=== PATIENT | female | born 1935 | race Caucasian/White ===

== ENCOUNTER 2019-03-27 11:05 | Emergency (ER) | payer MEDICARE, OTHER, SELFPAY ==
--- NOTE | ~2019-03-27 | XR_ITS ---
EXAMINATION: XR knee RT min 4V DATE: 03/27/2019 12:03 INDICATION: Right knee pain. TECHNIQUE: 4 views of right knee were obtained. COMPARISON: None. FINDINGS: There is a total right knee arthroplasty with patellar resurfacing in near-anatomic alignme nt. No fracture. No periprosthetic lucency to suggest loosening or infection. No knee joint effusion. IMPRESSION: 1. Total right knee arthroplasty in near-anatomic alignment. Reviewed, dictated and finalized at location A. TING SALES REPRESENTATIVE
[2019-03-27 11:36] VITALS: BP 111/73; PULSE 113; RESP 16; TEMP 36.6; O2SAT 99
--- NOTE | 2019-03-27 11:36 | ED.GENADULT ---
HPI - General Adult General Chief complaint: Extremity Injury, Lower Stated complaint: Right Knee Pain Time Seen by Provider: 03/27/19 11:52 Source: patient and RN notes reviewed Mode of arrival: ambulatory Limitations: no limitations History of Present Illness HPI narrative: This patient has had right knee pain which was present when she awakened 2 days ago. It hurts on the outside of the knee over the lateral collateral ligaments. It does not hurt over the anterior aspect of the knee or medially or posteriorly. The pain then went away and then this morning it recurred. She has not had any recent trauma to the knee and no trauma. 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 She indicates that she has had problems with her kidneys due to osteoarthritis medications with NSAIDs. The knee has not been swollen or bruised. It has not been warm to touch. It does not click, lock, pop, or give out on her. No other joint areas are painful. She has not had any fever, no nasal drainage, no sore throat, no cough. Has had no rashes. There is been no nausea, no vomiting, and no diarrhea. She has had no hematuria, no dysuria, no pyuria. She had no rashes. Related Data Home Medications Medication Instructions Recorded Confirmed Promise Eye Drops DAILY 03/27/19 alendronate 35 mg PO WEEKLY 03/27/19 03/27/19 allopurinol 300 mg PO DAILY 03/27/19 03/27/19 diltiazem HCl 180 mg PO DAILY 03/27/19 03/27/19 furosemide 20 mg PO DAILY 03/27/19 03/27/19 hydralazine 25 mg PO BID 03/27/19 03/27/19 rivaroxaban [Xarelto] 15 mg PO DAILY 03/27/19 03/27/19 sitagliptin [Januvia] 100 mg PO DAILY 03/27/19 03/27/19 Allergies Allergy/AdvReac Type Severity Reaction Status Date / Time Hfyyoyh-Eah-Fih Reductase Allergy Severe MUSCLE PAIN Verified 04/03/17 13:33 Inhibitor Penicillins Allergy Unknown JOINT Verified 04/03/17 13:33 PAIN, RASH Review of Systems Review of Systems: Narrative: CONSTITUTIONAL: Denies fever, chills, or sweats. Noncontributory except as pertains to the past medical history and the history of present illness. EYES: Denies visual changes, redness, or discharge. ENT: Denies rhinorrhea, congestion, sore throat, or otalgia. CARDIOVASCULAR: Denies chest pain, palpitations, or edema. RESPIRATORY: Denies cough or dyspnea. GASTROINTESTINAL: Denies abdominal pain, nausea, vomiting, or diarrhea. GENITOURINARY: Denies dysuria or hematuria. SKIN: Denies rash or itching. MUSCULOSKELETAL: Denies back pain, joint pain, or myalgia. NEUROLOGIC: Denies headache, numbness, or weakness. PSYCHIATRIC: Denies anxiety or depression. PMFSH Comments At time of signature, I have reviewed and agree with nursing past medical, surgical, social, and family history.Please see nursing chart for further information. There is no relevant family history pertinent to the presenting complaint. Exam Narrative: Exam Narrative: GENERAL: Well-appearing, well-nourished, and in no acute distress. HEAD: Normocephalic, atraumatic. EYES: PERRLA and EOMI. EARS: TM's clear bilaterally and the canals are clear. NOSE: Nares clear, no rhinorrhea or epistaxis. THROAT:Mucous membranes moist.Oropharynx normal without erythema or exudates. NECK: Supple. No adenopathy of the neck, supraclavicular, axillary, or inguinal areas. RESPIRATORY: No respiratory distress. Airway patent. Respirations non-labored. Clear to auscultation. HEART: Regular rate and rhythm. No murmur heard. Normal peripheral pulses. ABDOMEN: Soft, nontender, nondistended, normal active bowel sounds.No masses. No rebound or guarding, No organomegaly. No CVA pain. No pain McBurney's point. Patient has a negative Cantu sign and negative Rovsing sign. There are no pulsatile masses no audible bruits. EXTREMITIES: No clubbing/cyanosis/ edema. Normal strength & range of motion. The extremity exam is normal except for the right knee where she has palpation tenderness over the
== END 2019-03-27 12:25 | disposition home or self-care (01) ==
PROVIDERS: Emergency Provider Family Medicine
DX: M77.9 Enthesopathy, unspecified (principal); Z96.651 Presence of right artificial knee joint; I48.91 Unspecified atrial fibrillation; E78.00 Pure hypercholesterolemia, unspecified; I10 Essential (primary) hypertension; M19.90 Unspecified osteoarthritis, unspecified site; M81.0 Age-related osteoporosis without current pathological fracture; E11.9 Type 2 diabetes mellitus without complications
CPT/HCPCS: 73564; 99213; G0463

== ENCOUNTER 2020-08-09 10:32 | Inpatient (IN) | payer MEDICARE, OTHER, SELFPAY ==
[2020-08-09] VITALS (15 sets, daily range): BP systolic 88–125; BP diastolic 44–81; PULSE 109–143; RESP 17–25; TEMP 36.7–37.2; O2SAT 97–100; BMI 26.3
--- NOTE | ~2020-08-09 | US_ITS ---
EXAMINATION: US venous doppler LE EXAM DATE: 08/10/2020 14:16 INDICATION: Bilateral lower extremity swelling, edema. TECHNIQUE: Multiple grayscale, color flow and Doppler images of the lower extremity deep venous syste ms bilaterally were obtained and reviewed. There is no prior study for comparison. FINDINGS: Right side: The right common femoral, femoral and profunda veins demonstrate normal color flow, respi ratory variation, augmentation and compressibility. Compressibility, color flow confirmed within the right popliteal, posterior tibial, peroneal, and greater saphenous veins. Left side: The left common femoral, femoral and profunda veins demonstrate normal color flow, respira tory variation, augmentation and compressibility. Compressibility, color flow confirmed within the l eft popliteal, posterior tibial, peroneal, and greater saphenous veins. IMPRESSION: No lower extremity deep venous thrombosis bilaterally. Reviewed, dictated and finalized at location B.
--- NOTE | 2020-08-09 10:22 | ADMGEN ---
This patient, Shannon Ramirez, was admitted to Intensive Care Unit-6 from [facility] at 0950 via ambulance. Patient/family oriented to hospital policies and general routines including ID bracelet, bed and alarms, visiting hours, pain management, procedures, bathroom and other care routines, personal items, smoking policy, room service/diet, and visiting hours. Information on how to activate the Rapid Response Team has been discussed. Patient/Family are encouraged to report perceived risks to care and to ask questions if they do not understand what they are told or what they should do.
[2020-08-09] MEDS: METOPROLOL TARTRATE INJ 5 MG/5 ML VIAL 2.5 MG IV PUSH (10:25)
[2020-08-09 10:39] LABS: Glucose Point of Care 274 mg/dl (65-105)
--- NOTE | 2020-08-09 10:43 | WPDCNINT ---
Assessment and Plan Assessment and plan (1) Anemia: Code(s): D64.9 - Anemia, unspecified Status: Acute Assessment and Plan: Severe anemia likely related to anticoagulation, anemia of chronic disease, GI bleed -a place patient on Protonix infusion -patient has been transfused 2 units of packed RBCs, repeat hemoglobin is 7.7, will give additional 1 unit PRBC -appreciate GI evaluation recommendation, patient to undergo EGD and colonoscopy -patient did receive Kcentra at the outside hospital since she is on Xarelto for atrial fibrillation (2) GI bleeding: Code(s): K92.2 - Gastrointestinal hemorrhage, unspecified Status: Acute Assessment and Plan: Possible GI bleed, EGD and colonoscopy as above -continue PPI infusion -transfuse packed RBC as needed -BUN is elevated which could indicate a GI bleed -lactic acid elevated to 2.8, will recheck lactic level (3) Atrial fibrillation: Code(s): I48.91 - Unspecified atrial fibrillation Status: Acute Assessment and Plan: Patient history of atrial fibrillation on Cardizem at home along with Xarelto -currently in AFib RVR, given metoprolol 2.5 mg IV x1 with dropped her blood pressures -patient did get 500 mL of IV fluid bolus -will start amiodarone bolus and then infusion (4) Swelling of lower extremity: Code(s): M79.89 - Other specified soft tissue disorders Status: Acute Assessment and Plan: patient sees a arc cutter plasma arc at [facility], and was supposed to get a echocardiogram on 08/11/2020. Will obtain echocardiogram to evaluate heart function as patient is in AFib RVR -troponin negative x1 Additional Plan Discussed with patient and her niece at bedside, updated them with patient's condition, plan of care. I answered all questions. Patient stated she was to be do not resuscitate Code status: DNR Critical care time spent: 49 minutes This dictation may have been done utilizing a voice recognition system. Attempts have been made to correct errors. However, there may be uncorrected grammatical, spelling, and recognition errors present. Due to a high probability of clinically significant, life threatening deterioration, the patient required my highest level of preparedness to intervene emergently and I personally spent this critical care time directly and personally managing the patient. This critical care time included obtaining a history; examining the patient; pulse oximetry; ordering and review of studies; arranging urgent treatment with development of a management plan; evaluation of patient's response to treatment; frequent reassessment; and discussions with other providers. It was exclusive of separately billable procedures and treating other patients and teaching time. Please see Assessment and Plan section and the rest of the note for further information on patient assessment and treatment Hand Screen Printer Consult Note Consult date: 08/09/20 Time Seen: 10:33 HPI: Shannon Ramirez is a 85 year old female with past medical history of hypertension, chronic atrial fibrillation on Xarelto, diabetes, hypoparathyroidism, chronic renal failure presented to the outside hospital at [facility] early this morning 08/09/2020 with complaints of nausea, vomiting, diarrhea which he attributes it to eating spoiled fashion. In the ER at the outside hospital she was found to be tachycardic with a pulse in the 130s, irregular rhythm, hemoglobin was 6.6. She has been transfused 2 units of packed RBCs at the outside hospital, also received Kcentra to reverse anticoagulation. She was also hyperglycemic with an anion gap of 20, insulin infusion was started at the outside hospital which was discontinued prior to transferring the patient to the ICU at [facility]. Patient also acute on chronic kidney disease with a creatinine of 1.72 this morning at the outside hospital, (Cr was 1.27 on 07/07/2020). I discussed with Dr. Gómez at [place]
--- NOTE | 2020-08-09 10:50 | ECHO_ITS ---
Patient Info Name: Shannon Ramirez Age: 85 years : 1935 Gender: Female Ht: 64 in Wt: 153 lbs BSA: 1.79 m2 HR: 113 bpm BP: 106 / 47 mmHg Technical Quality: Fair Exam Date: 08/09/2020 2:40 PM Exam Location: [facility] Room: ICU6 Patient Status: Inpatient Admit Date: 08/09/2020 Staff Ordering Physician: Chacha Jara MD Executive Marketing Assistant: Reshma Jacobs RDCS Attending Provider: Kaela Cantu MD Referring Physician: Marek MILIAN; Exam Type: CA echo doppler color flow Study Info Indications - AFIB RVR ASSESS CARDIAC FUNCTION Complete two-dimensional, color flow and Doppler transthoracic echocardiogram is performed. Summary 1. Complete two-dimensional, color flow and Doppler transthoracic echocardiogram is performed. 2. Left ventricular systolic function is mildly reduced, estimated at 45-50%. 3. Left atrial chamber dimension is mildly enlarged. 4. There is mild aortic valve sclerosis. 5. The aortic valve is trileaflet. 6. There is mild aortic valve stenosis with a peak velocity of 203 cm/s, mean gradient of 11 mmHg, and aortic valve area of 1.7 cm2. 7. There is mild aortic valve regurgitation. 8. There is mild mitral valve regurgitation. 9. There is mild tricuspid valve regurgitation. 10. Mild pulmonary hypertension, estimated pulmonary arterial systolic pressure is 42 mmHg. 11. Hypokinesis of basal and mid anteroseptal wall. Left Ventricle Left ventricular chamber dimension is normal. Left ventricular systolic function is mildly reduced, estimated at 45-50%. There is no increased left ventricular wall thickness. Left ventricular septal wall motion is normal. The left ventricular diastolic function is abnormal. Right Ventricle Right ventricular chamber dimension is normal. Right ventricular systolic function is normal. Left Atria Left atrial chamber dimension is mildly enlarged. Right Atria Right atrial chamber dimension is normal. Atrial Septum Intact interatrial septum visualized by color flow imaging. Aortic Valve The aortic valve is trileaflet. There is mild aortic valve sclerosis. There is mild aortic valve stenosis with a peak velocity of 203 cm/s, mean gradient of 11 mmHg, and aortic valve area of 1.7 cm2. There is mild aortic valve regurgitation. Pulmonic Valve The pulmonic valve is normal. There is no pulmonic valve stenosis. There is mild pulmonic regurgitation. Mitral Valve The mitral valve has normal leaflets. There is no mitral valve stenosis. There is mild mitral valve regurgitation. Tricuspid Valve The tricuspid valve leaflets are normal. There is no significant tricuspid valve stenosis. There is mild tricuspid valve regurgitation. Mild pulmonary hypertension, estimated pulmonary arterial systolic pressure is 42 mmHg. Pericardium/Pleural The pericardium appears normal. There is no pericardial effusion. Inferior Vena Cava Normal inferior vena cava with >50% collapse upon inspiration consistent with normal right atrial pressure, 5 mmHg. Aorta The aortic root size at the sinus of Valsalva is normal. The prox ascending aorta size is normal. Left Ventricular Outflow Tract Name Value Normal LVOT 2D LVOT Meri
[2020-08-09] MEDS: SODIUM CHLORIDE 0.9% IV 500 ML IV CONT (11:00)
[2020-08-09 11:01] LABS: Basophils Percent Auto 0.1 % (0.2-1.2); Eosinophils Percent Auto 0.1 % (0-4.4); Hematocrit 23.8 % (37.0-47.0); Hemoglobin 7.7 g/dL (12.0-15.0); Immature Granulocyte Absolute 0.09 K/mm3 (0.00-0.031); Immature Granulocyte Percent A 1.1 % (0-0.5); Lymphocytes Percent Auto 8.3 % (18.3-44.2); Mean Corpuscular HGB Conc 32.4 g/dl (32-36); Mean Corpuscular Hemoglobin 29.5 pg (26-34); Mean Corpuscular Volume 91.2 fl (80-100); Mean Platelet Volume 9.6 fl (7.4-10.4); Monocytes Absolute Auto 0.5 K/mm3 (0.1-0.6); Monocytes Percent Auto 6.1 % (2.6-8.5); Neutrophils Absolute Auto 7.2 K/mm3 (1.3-6.7); Neutrophils Percent Auto 84.3 % (45.5-73.1); Platelet Count Result 235 k/mm3 (150-375); Red Blood Count 2.61 M/mm3 (4.2-5.4); Red Cell Distribution Width 16.9 % (11.5-14.5); White Blood Count 8.5 K/mm3 (4.5-10.0)
[2020-08-09 11:09] LABS: Lactic Acid Reflex 2.8 mmol/L (0.7-2.1)
[2020-08-09 11:11] LABS: Alanine Aminotransferase 16 U/L (4-35); Albumin Level 2.5 g/dL (3.5-5.1); Alkaline Phosphatase 84 U/L (38-126); Anion Gap 8 mmol/L (8-16); Aspartate Amino Transferase 22 U/L (14-36); Bilirubin,Total 1.2 mg/dL (0.2-1.3); Blood Urea Nitrogen 66 mg/dL (7-17); Calcium 7.9 mg/dL (8.4-10.2); Carbon Dioxide 25 mmol/L (22-30); Chloride 96 mmol/L (98-107); Estimated CRCL calculation 19 ml/min; Estimated Glomerular Filt Rate 28; Glucose 278 mg/dL (65-105); Magnesium 1.9 mg/dL (1.6-2.3); Phosphorus 3.6 mg/dL (2.5-4.5); Potassium 4.6 mmol/L (3.4-5.0); Sodium 129 mmol/L (137-145)
[2020-08-09 11:14] LABS: INR 2.2; Prothrombin Time 25.1 Seconds (11.1-14.7)
[2020-08-09 11:15] LABS: Beta-Hydroxybutyrate/Acetoacetate 0.28 mmol/L (0.02-0.27); Partial Thromboplastin Time 31.5 SECONDS (22.3-36.8)
--- NOTE | 2020-08-09 11:20 | WPDGICN ---
Assessment and Plan Assessment and plan (1) Anemia: Code(s): D64.9 - Anemia, unspecified Status: Acute Assessment and Plan: although she may have an element of chronic anemia, we are assuming that she has anemia due to acute blood loss, although she only had 1 bowel movement and she herself did not see blood. (2) GI bleeding: Code(s): K92.2 - Gastrointestinal hemorrhage, unspecified Status: Acute Assessment and Plan: She has no pain and no use of NSAIDs. This, and her age, make a lower GI bleed more likely than upper. She did receive a dose of Kcentra. Her INR is pending. I told her that we would probably perform EGD and colonoscopy together. She is agreeable to trying to take a prep (3) Atrial fibrillation: Code(s): I48.91 - Unspecified atrial fibrillation Status: Acute Assessment and Plan: heart rate is still elevated. She has not been year that long and therefore has not received a great deal of IV fluid, rehydration yet GI Consult Note Consult date/time: 08/09/20 11:20 HPI: Shannon Ramirez is a 85 year old female A workup was morning with some sweating and nausea and diarrhea. She had a bowel movement or 2 at home but did not look at it. She states that somebody told her that she was probably passing blood. She had no emesis. There is no history of peptic ulcer disease or colon diseases and has been quite a while since her last colonoscopy. She does not take NSAIDs or aspirin. She is on Xarelto and has been for few years for chronic AFib. Her appetite has been good and she denies dysphagia Review of Systems Review of Systems: All systems reviewed & are unremarkable except as noted in HPI and below [facility] Family History Family History Mother Congestive heart failure Father Congestive heart failure Social History Social History Smoking status: Never smoker Alcohol intake: never Substance use: never Gender identity (if verbalized by the patient): Female Spiritual care concerns: No Meds Home Medications and Allergies Home Medications Medication Instructions Recorded Confirmed Type Promise Eye Drops DAILY 03/27/19 History alendronate 35 mg PO WEEKLY 03/27/19 03/27/19 History allopurinol 300 mg PO DAILY 03/27/19 03/27/19 History diltiazem HCl 180 mg PO DAILY 03/27/19 03/27/19 History furosemide 20 mg PO DAILY 03/27/19 03/27/19 History hydralazine 25 mg PO BID 03/27/19 03/27/19 History rivaroxaban [Xarelto] 15 mg PO DAILY 03/27/19 03/27/19 History sitagliptin [Januvia] 100 mg PO DAILY 03/27/19 03/27/19 History Allergies Allergy/AdvReac Type Severity Reaction Status Date / Time Itoztqk-Mww-Nhy Reductase Allergy Severe MUSCLE PAIN Verified 04/03/17 13:33 Inhibitor Penicillins Allergy Unknown JOINT Verified 04/03/17 13:33 PAIN, RASH Vital Signs Vital Signs - 24 hr 08/09/20 10:25 08/09/20 10:32 Pulse Rate 136 H 136 H Exam Const: General: cooperative, comfortable and awake Cardio: Rhythm: abnormal rhythm ( irregular) GI: GI Palp: No abdominal tenderness, Yes Soft to palpation and Yes No hepatosplenomegaly present Auscultation: normal bowel sounds Skin: General skin exam: dry skin, no purpura and pallor Results Labs CBC & Chem 7: 08/09/20 10:54 08/09/20 10:53 Labs: Short CBC 08/09/20 Range/Units 10:54 WBC 8.5 (4.5-10.0) K/mm3 Hgb 7.7 L (12.0-15.0) g/dL Hct 23.8 L (37.0-47.0) % Plt Count 235 (150-375) k/mm3 [facility] 08/09/20 10:53 Sodium 129 L Potassium 4.6 Chloride 96 L Carbon Dioxide 25 BUN 66 H Creatinine 1.70 H Glucose 278 H Calcium 7.9 L Liver Function 08/09/20 Range/Units 10:53 Total Bilirubin 1.2 (0.2-1.3) mg/dL AST 22 (14-36) U/L ALT 16 (4-35) U/L Alkaline Phosphatase 84 (38-126) U/L [place]bu
[2020-08-09 11:24] LABS: Troponin I 0.033 ng/mL (0.000-0.034)
[2020-08-09] MEDS: AMIODARONE 150 MG/D5W 100 ML 150 MG/100 ML BAG 600 MG IV CONT (11:30)
[2020-08-09] MEDS: AMIODARONE 360 MG/D5W 200 ML 360 MG/200 ML BAG 33.33 MG IV CONT (11:42)
[2020-08-09 12:32] LABS: Glucose Point of Care 273 mg/dl (65-105)
[2020-08-09 12:33] LABS: Add Urine Microscopic? YES; Appearance Urine Clear (Clear); Bilirubin Urine Negative (Negative); Blood Urine Negative (Negative); Color Urine Yellow (Yellow); Glucose Urine UA 3+ mg/dL (Negative); Ketones Urine Negative (Negative); Leukocyte Esterase Ur Negative LEU/UL (NEGATIVE); Mucus Urine Rare /lpf; Nitrate Urine Negative (Negative); Protein Urine Negative (Negative); Specific Grav Ur 1.014 (1.001-1.035); Urobilinogen Urine Negative mg/dL (<2.0); WBC Urine 0-3 /hpf (0-3)
[2020-08-09] MEDS: SODIUM CHLORIDE 0.9% IV 1,000 ML 50 ML IV CONT (12:36)
[2020-08-09] MEDS: INSULIN ASPART (*BKC) 100 UNITS/ML SUB-Q ×2 (12:39→17:15)
[2020-08-09 13:58] LABS: Reflex Lactic Acid Yes or No Add Lactic
[2020-08-09] MEDS: SODIUM CHLORIDE 0.9% IV 250 ML 30 ML IV CONT (14:15)
[2020-08-09 14:41] LABS: Lactic Acid 2.3 mmol/L (0.7-2.1)
[2020-08-09] MEDS: polyethylene glycoL 3350 238 GM BOTTLE PO (16:04)
--- NOTE | 2020-08-09 16:52 | PM.IMHP ---
H&P: HPI History of Present Illness Date/Time: 08/09/20 16:52 Chief Complaint: GI bleed Narrative: Pt has history of hypertension, chronic atrial fibrillation on Xarelto, diabetes, hypoparathyroidism, chronic renal failure presented to the outside hospital at [facility]. Pt admitted with diarrhea, melena and low hemoglobulin. Hb was 6.6. Pt takes xarelto. Pt did not see the melena but thinks she had some. Pt was given KCentra in [place]. and started on fluids here for low Bps. GI consulted for higher level of care. Pt to be watched in ICu today. Pt also has high sugars @500 now in the 200s continue to watch. Pt is on a protonix drip and amiodarone drip for AF with RVR. Hold blood thinners. Pt seen earlier this morning @ 11 am. Pt complains of swelling in both her legs and pain in her right hip has been using tramadol for hip pain. Pt has seen orthopedics and had MRI of hip recently. Pt sees PCP and cardiology also [facility] MDs. Review of Systems Review of Systems: All systems reviewed & are unremarkable except as noted in HPI and below PMFSH Family History Family History Mother Congestive heart failure Father Congestive heart failure Social History Social History Smoking status: Never smoker Alcohol intake: never Substance use: never Gender identity (if verbalized by the patient): Female Spiritual care concerns: No Meds Home Medications and Allergies Home Medications Medication Instructions Recorded Confirmed Type alendronate 70 mg PO WEEKLY 03/27/19 08/09/20 History allopurinol 300 mg PO DAILY 03/27/19 08/09/20 History diltiazem HCl 180 mg PO DAILY 03/27/19 08/09/20 History furosemide 20 mg PO DAILY 03/27/19 08/09/20 History hydralazine 25 mg PO BID 03/27/19 08/09/20 History rivaroxaban [Xarelto] 15 mg PO DAILY 03/27/19 08/09/20 History sitagliptin [Januvia] 100 mg PO DAILY 03/27/19 08/09/20 History Allergies Allergy/AdvReac Type Severity Reaction Status Date / Time Hvndjke-Vmt-Iay Reductase Allergy Severe MUSCLE PAIN Verified 04/03/17 13:33 Inhibitor Penicillins Allergy Unknown JOINT Verified 04/03/17 13:33 PAIN, RASH Vital Signs Vital Signs - 24 hr 08/09/20 10:08 08/09/20 10:25 08/09/20 10:32 Temperature 36.7 C Pulse Rate 143 H 136 H 136 H Respiratory Rate 19 Blood Pressure 110/78 Pulse Oximetry 99 08/09/20 11:30 08/09/20 11:42 08/09/20 12:00 Temperature 36.8 C Pulse Rate 125 H 112 H 115 H Respiratory Rate 20 Blood Pressure 88/44 L 88/44 L 88/53 L Pulse Oximetry 100 08/09/20 14:00 08/09/20 14:15 08/09/20 14:33 Temperature 37.2 C 37.2 C Pulse Rate 109 H 112 H 120 H Respiratory Rate 25 H 17 Blood Pressure 88/54 L 100/57 L Pulse Oximetry 100 100 08/09/20 16:00 Temperature 37.2 C Pulse Rate 120 H Respiratory Rate 19 Blood Pressure 100/57 L Pulse Oximetry 99 Exam Const: General: other (Elderly women ) HENMT: Head: normocephalic Eyes: General: appearance normal, both eyes and all related structures Pupils: Equal, round and reactive pupils present Neck: Neck: supple Chest: Chest palpation & inspection: normal inspection of the chest Resp: Effort & Inspection: normal respiratory effort Auscultation: clear to auscultation bilaterally Cardio: Jugular venous distension: no JVD Rhythm: regular rhythm Heart sounds: S1 normal heart sound present and S2 normal heart sound present GI: Inspection: normal to inspection GI Palp: No abdominal tenderness, Yes Soft to palpation and No Tenderness to palpation present (GI) Auscultation: normal bowel sounds : General: Yes no CVA tenderness Back/Spine/Pelvis: Back: other (TTP over r hip limited range of movements due to pain ) Skin: General skin exam: normal color and dry skin Neuro: Cranial nerves: Yes CN's II-XII intact bilaterally and Yes Equal, round and reactive pupi
[2020-08-09 17:00] LABS: Glucose Point of Care 250 mg/dl (65-105)
[2020-08-09] MEDS: AMIODARONE 360 MG/D5W 200 ML 360 MG/200 ML BAG 16.67 MG IV CONT (17:05)
[2020-08-09 23:30] LABS: Glucose Point of Care 172 mg/dl (65-105)
[2020-08-10] VITALS (22 sets, daily range): BP systolic 92–129; BP diastolic 40–73; PULSE 84–118; RESP 12–26; TEMP 36.2–37.1; O2SAT 95–100
[2020-08-10] MEDS: MAGNESIUM CITRATE 300 ML BTL 150 ML PO (04:10)
[2020-08-10] MEDS: AMIODARONE 360 MG/D5W 200 ML 360 MG/200 ML BAG 16.67 MG IV CONT (04:43)
[2020-08-10 04:51] LABS: Basophils Percent Auto 0.3 % (0.2-1.2); Eosinophils Absolute Auto 0.2 K/mm3 (0-0.3); Eosinophils Percent Auto 1.6 % (0-4.4); Hematocrit 26.3 % (37.0-47.0); Hemoglobin 9.1 g/dL (12.0-15.0); Immature Granulocyte Absolute 0.12 K/mm3 (0.00-0.031); Immature Granulocyte Percent A 1.2 % (0-0.5); Lymphocytes Absolute Auto 1.36 K/mm3 (0.9-3.2); Lymphocytes Percent Auto 13.7 % (18.3-44.2); Mean Corpuscular HGB Conc 34.6 g/dl (32-36); Mean Corpuscular Hemoglobin 30.3 pg (26-34); Mean Corpuscular Volume 87.7 fl (80-100); Mean Platelet Volume 10.2 fl (7.4-10.4); Monocytes Absolute Auto 0.6 K/mm3 (0.1-0.6); Monocytes Percent Auto 5.5 % (2.6-8.5); Neutrophils Absolute Auto 7.7 K/mm3 (1.3-6.7); Neutrophils Percent Auto 77.7 % (45.5-73.1); Platelet Count Result 232 k/mm3 (150-375); Red Cell Distribution Width 16.3 % (11.5-14.5)
[2020-08-10 05:02] LABS: INR 1.1; Prothrombin Time 14.7 Seconds (11.1-14.7)
[2020-08-10 05:03] LABS: Partial Thromboplastin Time 27.9 SECONDS (22.3-36.8)
[2020-08-10 05:09] LABS: Alanine Aminotransferase 14 U/L (4-35); Albumin Level 2.6 g/dL (3.5-5.1); Alkaline Phosphatase 85 U/L (38-126); Anion Gap 7 mmol/L (8-16); Aspartate Amino Transferase 22 U/L (14-36); Blood Urea Nitrogen 74 mg/dL (7-17); Calcium 8.1 mg/dL (8.4-10.2); Carbon Dioxide 24 mmol/L (22-30); Chloride 102 mmol/L (98-107); Estimated CRCL calculation 24 ml/min; Estimated Glomerular Filt Rate 39; Glucose 200 mg/dL (65-105); Magnesium 1.9 mg/dL (1.6-2.3); Phosphorus 2.4 mg/dL (2.5-4.5); Potassium 3.2 mmol/L (3.4-5.0); Sodium 133 mmol/L (137-145)
[2020-08-10 05:11] LABS: Lactic Acid Reflex 0.9 mmol/L (0.7-2.1)
[2020-08-10] MEDS: SODIUM CHLORIDE 0.9% IV 1,000 ML 50 ML IV CONT (07:35)
[2020-08-10 07:49] LABS: Glucose Point of Care 214 mg/dl (65-105)
[2020-08-10] MEDS: ACETAMINOPHEN 325 MG TABLET 650 MG PO ×2 (08:28→19:38)
--- NOTE | 2020-08-10 09:50 | PC.NURSE ---
Transfered to endoscopy via stretcher
--- NOTE | 2020-08-10 09:55 | WPDINTPN ---
Progress Note: A&P Assessment and Plan (1) Anemia: Code(s): D64.9 - Anemia, unspecified Status: Acute Assessment and Plan: Severe anemia likely related to anticoagulation, anemia of chronic disease, GI bleed -a place patient on Protonix infusion -patient has been transfused a total of 3 units of packed RBCs since admission, hemoglobin is stable at 9.1 this morning -appreciate GI evaluation recommendation, patient to undergo EGD and colonoscopy today. 08/10 -patient did receive Kcentra at the outside hospital since she is on Xarelto for atrial fibrillation, INR this morning is 1.1 (2) GI bleeding: Code(s): K92.2 - Gastrointestinal hemorrhage, unspecified Status: Inactive Assessment and Plan: Possible GI bleed, EGD and colonoscopy today -transfuse packed RBC as needed -BUN is elevated which could indicate a GI bleed -lactic acid Normalized (3) Atrial fibrillation: Code(s): I48.91 - Unspecified atrial fibrillation Status: Inactive Assessment and Plan: Patient history of atrial fibrillation on Cardizem at home along with Xarelto - patient adequately fluid-resuscitated - better rate control with volume resuscitation, packed RBCs and amiodarone 0.5 mg/minute (4) Swelling of lower extremity: Code(s): M79.89 - Other specified soft tissue disorders Status: Acute Assessment and Plan: patient sees a oil heater operator at [facility], and was supposed to get a echocardiogram on 08/11/2020. -echocardiogram 08/09/2020 shows reduced LV systolic function, EF 45-50%, mild aortic valve stenosis, mild aortic valve regurg, mild mitral valve regurg, mild tricuspid valve regurg, mild pulmonary hypertension with RVSP of 42 mmHg. Hypokinesis of basal and mid anteroseptal -troponin negative x1 -will obtain lower extremity Dopplers (5) Acute kidney injury: Code(s): N17.9 - Acute kidney failure, unspecified Status: Inactive Assessment and Plan: Acute on chronic kidney injury, baseline creatinine of 1.2 -creatinine on admission was 1.7 -patient has been adequately fluid-resuscitated with crystalloids and packed RBCs -creatinine this morning has improved, continue to monitor urine output, renal function electrolytes Additional Plan Discussed with patient and her niece at bedside, updated them with patient's condition, plan of care. Patient is aware that she will be getting a colonoscopy and EGD today Code status: DNR Critical care time spent: 49 minutes This dictation may have been done utilizing a voice recognition system. Attempts have been made to correct errors. However, there may be uncorrected grammatical, spelling, and recognition errors present. Due to a high probability of clinically significant, life threatening deterioration, the patient required my highest level of preparedness to intervene emergently and I personally spent this critical care time directly and personally managing the patient. This critical care time included obtaining a history; examining the patient; pulse oximetry; ordering and review of studies; arranging urgent treatment with development of a management plan; evaluation of patient's response to treatment; frequent reassessment; and discussions with other providers. It was exclusive of separately billable procedures and treating other patients and teaching time. Please see Assessment and Plan section and the rest of the note for further information on patient assessment and treatment Subjective Date/time seen: 08/10/20 09:55 Interval history: Reason for consult: Severe anemia, GI bleeding, AFib RVR 08/10/2020: Patient seen and examined this morning, according the bedside RN patient has had multiple episodes of bowel movements with dark stools along with blood in the stools. Patient is hemodynamically stable, currently on room air with good O2 sats. Hemoglobin has been stable after receiving 3 units of packed RBCs yesterday.
[2020-08-10] MEDS: LACTATED RINGERS 1,000 ML 150 ML IV CONT (10:07)
[2020-08-10 10:09] LABS: Glucose Point of Care 205 mg/dl (65-105)
--- NOTE | 2020-08-10 11:02 | PCDIET ---
ICU Rounding Note: Patient remains NPO. Off unit for endoscopy today. Received 3u RBC yesterday. Last recorded weight is 69.3kg which is stable. Bowel Motility: BM x 1 today. Labs Reviewed: Hgb (9.1), Hct (26.3), Glu (200), BUN (74), Cr (1.3), K (3.2), Na (133), Alb (2.6), [place] Ca (9.22), PO4 (2.4) Meds Noted: Amiodarone, Novolog, Protonix, NS at 50mL/hr Additional Notes: Recommend potassium and phosphorus replacement, as medically appropriate. Following daily in ICU rounds. Assessing/reassessing every 3 days.
--- NOTE | 2020-08-10 11:13 | WPDANESEPPF ---
Anes - Initial Pre Proc Eval Procedure: Operation Date: 08/10/20 11:00 Proposed Procedures p Esophagogastroduodenoscopy & Colonoscopy - Kevin Welsh MD Date/Time: 08/10/20 11:13 Surgeon: Kaela Cantu MD Pre Op Diagnosis: gi bleed Patient Data Age: 85 Gender: F Height: 5 ft 4 in Weight: 69.3 kg Last Vital Signs Temp 98.1 F 08/10/20 10:03 Pulse 105 H 08/10/20 10:03 Resp 18 08/10/20 10:03 BP 110/62 08/10/20 10:03 Pulse Ox 100 08/10/20 10:03 Allergies Allergy/AdvReac Type Severity Reaction Status Date / Time [id number] Reductase Allergy Severe MUSCLE PAIN Verified 08/10/20 10:00 Inhibitor Penicillins Allergy Unknown JOINT Verified 08/10/20 10:00 PAIN, RASH Home Medications Medication Instructions Recorded Confirmed Type alendronate 70 mg PO WEEKLY 03/27/19 08/09/20 History allopurinol 300 mg PO DAILY 03/27/19 08/09/20 History diltiazem HCl 180 mg PO DAILY 03/27/19 08/09/20 History furosemide 20 mg PO DAILY 03/27/19 08/09/20 History hydralazine 25 mg PO BID 03/27/19 08/09/20 History rivaroxaban [Xarelto] 15 mg PO DAILY 03/27/19 08/09/20 History sitagliptin [Januvia] 100 mg PO DAILY 03/27/19 08/09/20 History Laboratory Tests 08/09/20 08/09/20 08/09/20 10:53 10:53 10:53 WBC RBC Hgb Hct MCV MCH MCHC RDW Plt Count MPV Immature Gran % (Auto) Neut % (Auto) Lymph % (Auto) [place] % (Auto) Eos % (Auto) Baso % (Auto) Lymph # (Auto) [place] # (Auto) Eos # (Auto) Baso # (Auto) Abs Immat Gran (auto) Absolute Neuts (auto) Absolute Nucleated RBC Nucleated RBC % PT 25.1 Seconds H Seconds (11.1-14.7) INR 2.2 APTT 31.5 SECONDS SECONDS (22.3-36.8) Sodium Potassium Chloride Carbon Dioxide Anion Gap BUN Creatinine Estim Creat Clear Calc Estimated GFR Glucose POC Capillary Glucose Lactic Acid Calcium Phosphorus Magnesium Total Bilirubin AST ALT Alkaline Phosphatase Troponin I 0.033 ng/mL ng/mL (0.000-0.034) Total Protein Albumin Beta-Hydroxybutyrate/Acetoacetate Urine Color Urine Appearance Urine pH Ur Specific [place] Urine Protein Urine Glucose (UA) Urine Ketones Ur Blood (Man) Urine Nitrate Urine Bilirubin Urine Urobilinogen Ur Leukocyte Esterase Urine WBC Hyaline Casts Urine Mucus Blood Type O Negative Antibody Screen Negative Crossmatch See Detail 08/09/20 08/09/20 08/09/20 10:53 12:10 12:28 WBC RBC Hgb Hct MCV MCH MCHC RDW Plt Count MPV Immature Gran % (Auto) Neut % (Auto) Lymph % (Auto) [place] % (Auto) Eos % (Auto) Baso % (Auto) Lymph # (Auto) [place] # (Auto) Eos # (Auto) Baso # (Auto) Abs Immat Gran (auto) Absolute Neuts (auto) Absolute Nucleated RBC Nucleated RBC % PT INR APTT Sodium Potassium Chloride Carbon Dioxide Anion Gap BUN Creatini
[2020-08-10] MEDS: EPINEPHrine INJ 1 MG/10 ML SYRINGE XX (12:16)
[2020-08-10 13:09] LABS: Glucose Point of Care 233 mg/dl (65-105)
--- NOTE | 2020-08-10 13:30 | PC.NURSE ---
Patient returned from endoscopy to ICU6 without issue. Left hand IV discontinued, right hand IV initiated in endoscopy
[2020-08-10 17:17] LABS: Glucose Point of Care 200 mg/dl (65-105)
--- NOTE | 2020-08-10 17:59 | PC.NURSE ---
Updated patient's son on results from Endoscopy and Colonoscopy.
[2020-08-10] MEDS: METOPROLOL TARTRATE 12.5 MG TABLET PO (21:18)
[2020-08-10 21:26] LABS: Glucose Point of Care 336 mg/dl (65-105)
[2020-08-10] MEDS: INSULIN ASPART (*BKC) 100 UNITS/ML 6 UNITS SUB-Q (21:31)
[2020-08-11] VITALS (14 sets, daily range): BP systolic 95–149; BP diastolic 45–88; PULSE 88–122; RESP 14–22; TEMP 36.2–36.9; O2SAT 96–100
[2020-08-11 00:08] LABS: Glucose Point of Care 78 mg/dl (65-105)
[2020-08-11] MEDS: ACETAMINOPHEN 325 MG TABLET 650 MG PO ×3 (02:30→22:16)
[2020-08-11 03:37] LABS: Glucose Point of Care 198 mg/dl (65-105)
[2020-08-11] MEDS: SODIUM CHLORIDE 0.9% IV 1,000 ML 50 ML IV CONT (03:51)
[2020-08-11 04:54] LABS: Basophils Percent Auto 0.2 % (0.2-1.2); Eosinophils Absolute Auto 0.3 K/mm3 (0-0.3); Eosinophils Percent Auto 3.3 % (0-4.4); Hematocrit 22.1 % (37.0-47.0); Hemoglobin 7.4 g/dL (12.0-15.0); Immature Granulocyte Absolute 0.08 K/mm3 (0.00-0.031); Immature Granulocyte Percent A 0.9 % (0-0.5); Lymphocytes Absolute Auto 1.08 K/mm3 (0.9-3.2); Lymphocytes Percent Auto 11.6 % (18.3-44.2); Mean Corpuscular HGB Conc 33.5 g/dl (32-36); Mean Corpuscular Volume 89.5 fl (80-100); Monocytes Absolute Auto 0.4 K/mm3 (0.1-0.6); Monocytes Percent Auto 4.7 % (2.6-8.5); Neutrophils Absolute Auto 7.4 K/mm3 (1.3-6.7); Neutrophils Percent Auto 79.3 % (45.5-73.1); Platelet Count Result 199 k/mm3 (150-375); Red Blood Count 2.47 M/mm3 (4.2-5.4); Red Cell Distribution Width 16.3 % (11.5-14.5); White Blood Count 9.3 K/mm3 (4.5-10.0)
[2020-08-11 05:11] LABS: Anion Gap 5 mmol/L (8-16); Blood Urea Nitrogen 36 mg/dL (7-17); Calcium 7.6 mg/dL (8.4-10.2); Carbon Dioxide 23 mmol/L (22-30); Chloride 100 mmol/L (98-107); Estimated CRCL calculation 35 ml/min; Estimated Glomerular Filt Rate 53; Glucose 176 mg/dL (65-105); Magnesium 1.9 mg/dL (1.6-2.3); Potassium 2.8 mmol/L (3.4-5.0); Sodium 128 mmol/L (137-145)
[2020-08-11] MEDS: POTASSIUM CHLORIDE 20 MEQ PACKET (FOR LIQUID) 40 MEQ PO ×3 (06:10→16:28)
[2020-08-11] MEDS: LIDOCAINE 5% PATCH 1 PATCH TRANSDERM (08:15)
[2020-08-11 08:49] LABS: Glucose Point of Care 176 mg/dl (65-105)
[2020-08-11] MEDS: METOPROLOL TARTRATE 12.5 MG TABLET PO ×3 (09:22→22:14)
--- NOTE | 2020-08-11 09:52 | WPDINTPN ---
Progress Note: A&P Assessment and Plan (1) Anemia: Code(s): D64.9 - Anemia, unspecified Status: Acute Assessment and Plan: Severe anemia likely related to anticoagulation, anemia of chronic disease, GI bleed -a place patient on Protonix infusion -patient has been transfused a total of 3 units of packed RBCs since admission, -hemoglobin dropped to 7.4 this morning, will recheck later this morning -appreciate GI evaluation recommendation, -patient did receive Kcentra at the outside hospital since she is on Xarelto for atrial fibrillation, INR this morning is 1.1 (2) GI bleeding: Code(s): K92.2 - Gastrointestinal hemorrhage, unspecified Status: Inactive Assessment and Plan: -08/10/2020: 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, esophageal ulcer without bleeding status post injection of epinephrine, cauterization with gold probe and resolution clips -08/10/2020 colonoscopy: A luminal colonic blood, internal hemorrhoids, diverticulosis without perforation or abscess without bleeding -transfuse packed RBC as needed -BUN is elevated which could indicate a GI bleed -lactic acid Normalized (3) Atrial fibrillation: Code(s): I48.91 - Unspecified atrial fibrillation Status: Inactive Assessment and Plan: Patient history of atrial fibrillation on Cardizem at home along with Xarelto - patient adequately fluid-resuscitated - better rate control with volume resuscitation, packed RBCs -off amiodarone infusion -started on low-dose beta-feng with better rate control (4) Swelling of lower extremity: Code(s): M79.89 - Other specified soft tissue disorders Status: Acute Assessment and Plan: patient sees a wardrobe manager at [facility], and was supposed to get a echocardiogram on 08/11/2020. -echocardiogram 08/09/2020 shows reduced LV systolic function, EF 45-50%, mild aortic valve stenosis, mild aortic valve regurg, mild mitral valve regurg, mild tricuspid valve regurg, mild pulmonary hypertension with RVSP of 42 mmHg. Hypokinesis of basal and mid anteroseptal -troponin negative x1 -will obtain lower extremity Dopplers (5) Acute kidney injury: Code(s): N17.9 - Acute kidney failure, unspecified Status: Inactive Assessment and Plan: Acute on chronic kidney injury, baseline creatinine of 1.2 -creatinine on admission was 1.0, this morning -patient has been adequately fluid-resuscitated with crystalloids and packed RBCs -creatinine this morning has improved, continue to monitor urine output, renal function electrolytes Additional Plan Discussed with patient and her niece at bedside, updated them with patient's condition, plan of care. Patient is aware that she will be getting a colonoscopy and EGD today Code status: DNR Critical care time spent: 32 minutes This dictation may have been done utilizing a voice recognition system. Attempts have been made to correct errors. However, there may be uncorrected grammatical, spelling, and recognition errors present. Due to a high probability of clinically significant, life threatening deterioration, the patient required my highest level of preparedness to intervene emergently and I personally spent this critical care time directly and personally managing the patient. This critical care time included obtaining a history; examining the patient; pulse oximetry; ordering and review of studies; arranging urgent treatment with development of a management plan; evaluation of patient's response to treatment; frequent reassessment; and discussions with other providers. It was exclusive of separately billable procedures and treating other patients and teaching time. Please see Assessment and Plan section and the rest of the note for further information on patient assessment and treatment Subjective Date/time seen: 08/11/20 09:52 Interval history: Reason for consult: Severe anemia, GI bleeding, AFib RVR -08/11/19
[2020-08-11 10:52] LABS: Hematocrit 25.2 % (37.0-47.0); Hemoglobin 8.4 g/dL (12.0-15.0)
[2020-08-11 11:31] LABS: Glucose Point of Care 168 mg/dl (65-105)
--- NOTE | 2020-08-11 11:44 | PCNFU ---
Nutrition Follow-Up Complete: Inadequate oral intake related to GI bleeding as evidenced by NPO diet, reported weight loss. Goal: Patient to meet estimated nutritional needs. Progressing towards goal. We will continue current goal. Pt current nutrition is Full liquids. Last recorded weight is 73.3 kg, up from 69.5 kg on admit. Bowel Motility:+BM reported 08/11 Labs Reviewed:Hgb 7.4,Hct 22.1,Na 128,K 2.8,GFR 53,BUN 36,Cr 0.5,Glu 176 Meds Noted:Lopressor,NovoLog, Protonix, NS at 50mL/hr Additional Notes: No skin issues. Potassium is being replaced. GI on the case. Diet order has advanced to a full liquid diet. tolerating liquids. Monitoring: Follow up every 3 days.
--- NOTE | 2020-08-11 13:20 | WPDGIPROGNO ---
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 The visible vessel in the largest ulcer was cauterized and clipped. continuing Protonix, 40 mg b.i.d. (2) GI bleeding: Code(s): K92.2 - Gastrointestinal hemorrhage, unspecified Status: Acute Assessment and Plan: Her hemoglobin has dropped, 7.4 this morning. We will need to keep an eye on this. I think we can give her a full liquid diet but nothing more than that for now Subjective Date/time seen: 08/11/20 13:20 she has no complaints. No evidence of further bleeding. Hemoglobin has dropped a bit. She is tolerating clear liquids Review of Systems Cardiovascular: Cardiovascular: Reports no additional cardiovascular complaints Respiratory: Respiratory: Reports no additional respiratory complaints Gastrointestinal: Gastrointestinal: Reports no additional gastrointestinal complaints Exam Const: General: cooperative, comfortable and no acute distress Resp: Auscultation: clear to auscultation bilaterally GI: GI Palp: No abdominal tenderness, Yes Soft to palpation and Yes No hepatosplenomegaly present Auscultation: normal bowel sounds Objective Data Vital Signs Vital Signs: Vital Signs - 24 hr 08/10/20 13:35 08/10/20 13:40 08/10/20 14:00 Temperature 37.1 C Pulse Rate 84 84 107 H Respiratory Rate 15 15 26 H Blood Pressure 118/62 118/42 L Pulse Oximetry 100 100 100 08/10/20 16:00 08/10/20 17:00 08/10/20 18:00 Temperature 36.8 C Pulse Rate 103 H 96 106 H Respiratory Rate 18 21 H Blood Pressure 106/53 L 99/71 L 100/57 L Pulse Oximetry 99 100 08/10/20 20:00 08/10/20 21:18 08/10/20 22:30 Temperature 36.3 C L Pulse Rate 111 H 101 H 100 Respiratory Rate 19 12 Blood Pressure 95/58 L 104/56 L Pulse Oximetry 100 100 08/10/20 23:55 08/11/20 00:00 08/11/20 02:00 Temperature 36.2 C L Pulse Rate 92 88 97 Respiratory Rate 13 15 Blood Pressure 114/57 L 95/45 L Pulse Oximetry 98 99 08/11/20 04:00 08/11/20 06:00 08/11/20 08:00 Temperature 36.2 C L 36.4 C Pulse Rate 99 93 119 H Respiratory Rate 14 22 H 20 Blood Pressure 99/48 L 105/55 L 116/66 Pulse Oximetry 100 100 98 08/11/20 09:22 08/11/20 10:00 08/11/20 12:00 Temperature Pulse Rate 117 H 99 111 H Respiratory Rate 20 Blood Pressure 119/71 Pulse Oximetry 96 Intake/Output Intake/Output: Intake & Output 08/08/20 08/09/20 08/10/20 08/11/20 23:59 23:59 23:59 23:59 Intake Total 2375 3790 3175 Output Total 1050 2200 725 Balance 1325 1590 2450 Meds/Results Medications: Active Medications Generic Name Dose Route Start Last Admin Trade Name Freq PRN Reason Stop Dose Admin Acetaminophen 650 mg 08/09/20 10:32 08/11/20 08:15 Acetaminophen 325 Mg Tablet PO 650 mg Q6H PRN Administration Mild Pain (1-3) or Fever Dextrose 12.5 gm 08/09/20 17:15 Dextrose 50% 25 Gm/50 Ml Syringe IV PUSH PRN PRN Hypoglycemia Protocol Glucagon 1 mg 08/09/20 17:15 Glucagon For Inj 1 Mg Vial IM PRN PRN Hypoglycemia Protocol Glucose 15 gm 08/09/20 17:15 Glucose Oral Gel 15 Gm Of Glucse In 37.5 Gm Tube PO PRN PRN Hypoglycemia Protocol Sodium Chloride 1,000 mls @ 50 mls/hr 08/09/20 11:50 08/11/20 05:48 Normal Saline Iv IV CONT 50 mls/hr .Q20H MAGDY Infusion Dextrose 1,000 mls @ 100 mls/hr 08/09/20 17:15 Dextrose 5% 1,000 Ml IVPB PRN PRN Hypoglycemia Protocol Insulin Aspart 4 - 8 units 08/09/20 12:00 08/11/20 11:30 Insulin Aspart (*Bkc) 100 Units/Ml SUB-Q Not Given TIDWM MAGDY Protocol Lidocaine 1 patch 08/11/20 01:00 08/11/20 08:15 Lidocaine 5% Patch TRANSDERM 1 patch DAILY [facility] Administra
--- NOTE | 2020-08-11 14:41 | PM.IMPN ---
Progress Note: A&P Assessment and Plan (1) Atrial fibrillation: Code(s): I48.91 - Unspecified atrial fibrillation Status: Acute Assessment and Plan: sp amiodarone drip HOld xarelto SEen By ICU MD (2) GI bleeding: Code(s): K92.2 - Gastrointestinal hemorrhage, unspecified Status: Acute Assessment and Plan: HOld xarelto Pt received K centra in [place] (3) Anemia: Code(s): D64.9 - Anemia, unspecified Status: Acute Assessment and Plan: monitor HB frequently (4) Swelling of lower extremity: Code(s): M79.89 - Other specified soft tissue disorders Status: Acute Assessment and Plan: Continue to watch swelling in legs (5) Diabetes: Code(s): E11.9 - Type 2 diabetes mellitus without complications Status: Inactive Assessment and Plan: AccuCheck SSI, hold oral DM medications Subjective Date/time seen: 08/11/20 14:41 Interval history: Pt admitted with gi bleed, af found to have barrettes since anaemic cont to watch, seen by GI and icu. STable for the medical floor, hold xarelto, sugars better, bp is better no further bleeding can transfer to medical floor , bp is stable Review of Systems Review of Systems: All systems reviewed & are unremarkable except as noted in HPI and below Exam Const: General: other (Elderly women ) HENMT: Head: normocephalic Eyes: General: appearance normal, both eyes and all related structures Pupils: Equal, round and reactive pupils present Neck: Neck: supple Chest: Chest palpation & inspection: normal inspection of the chest Resp: Effort & Inspection: normal respiratory effort Auscultation: clear to auscultation bilaterally Cardio: Jugular venous distension: no JVD Rhythm: regular rhythm Heart sounds: S1 normal heart sound present and S2 normal heart sound present GI: Inspection: normal to inspection Auscultation: normal bowel sounds Skin: General skin exam: normal color and dry skin Neuro: Cranial nerves: Yes CN's II-XII intact bilaterally and Yes Equal, round and reactive pupils present Cognition (Neuro): normal cognition Speech: normal speech Motor exam (neuro): 5/5 motor strength present throughout Extrem: General: normal to inspection Psych: Appearance: grossly normal Mental Status: mental status grossly normal Objective Data Vital Signs Vital Signs: Vital Signs - 24 hr 08/10/20 16:00 08/10/20 17:00 08/10/20 18:00 Temperature 36.8 C Pulse Rate 103 H 96 106 H Respiratory Rate 18 21 H Blood Pressure 106/53 L 99/71 L 100/57 L Pulse Oximetry 99 100 08/10/20 20:00 08/10/20 21:18 08/10/20 22:30 Temperature 36.3 C L Pulse Rate 111 H 101 H 100 Respiratory Rate 19 12 Blood Pressure 95/58 L 104/56 L Pulse Oximetry 100 100 08/10/20 23:55 08/11/20 00:00 08/11/20 02:00 Temperature 36.2 C L Pulse Rate 92 88 97 Respiratory Rate 13 15 Blood Pressure 114/57 L 95/45 L Pulse Oximetry 98 99 08/11/20 04:00 08/11/20 06:00 08/11/20 08:00 Temperature 36.2 C L 36.4 C Pulse Rate 99 93 119 H Respiratory Rate 14 22 H 20 Blood Pressure 99/48 L 105/55 L 116/66 Pulse Oximetry 100 100 98 08/11/20 09:22 08/11/20 10:00 08/11/20 12:00 Temperature Pulse Rate 117 H 99 111 H Respiratory Rate 20 Blood Pressure 119/71 Pulse Oximetry 96 Intake/Output Intake/Output: Intake & Output 08/08/20 08/09/20 08/10/20 08/11/20 23:59 23:59 23:59 23:59 Intake Total 2375 3790 3175 Output Total 1050 2200 725 Balance 1325 1590 2450 Meds/Results Medications: Active Medications Generic Name Dose Route Start Last Admin Trade Name Freq PRN Reason Stop Dose Admin Acetaminophen 650 mg 08/09/20 10:32 08/11/20 08:15 Acetaminophen 325 Mg Tablet PO 650 mg Q6H PRN Administration Mild Pain (1-3) or Fever Dextrose 12.5 gm 08/09/20 17:15 Dextrose 50% 25 Gm/50 Ml Syringe IV PUSH PRN PRN Hypoglycemia Protocol Gl
[2020-08-11 16:25] LABS: Glucose Point of Care 201 mg/dl (65-105)
[2020-08-11] MEDS: INSULIN ASPART (*BKC) 100 UNITS/ML SUB-Q (16:28)
--- NOTE | 2020-08-11 17:30 | PC.NURSE ---
This patient, Shnanon Ramirez, was transferred to [[id number]] on 08/11/20 at 1730. Personal belongings sent with patient. Report given to [Radha BRANHAM]. Appropriate documentation sent with patient.
--- NOTE | 2020-08-11 17:35 | PC.NURSE ---
patient transferred to room [facility] at 1735. hearing aides x2 , glasses, and cell phone with patient at time of transfer. patient oriented to room and call system.
[2020-08-11] MEDS: PANTOPRAZOLE SODIUM IV 40 MG VIAL IV PUSH (20:38)
[2020-08-11 21:07] LABS: Glucose Point of Care 202 mg/dl (65-105)
[2020-08-12] VITALS (13 sets, daily range): BP systolic 95–110; BP diastolic 58–69; PULSE 40–124; RESP 14–20; TEMP 36.1–36.6; O2SAT 96–100
[2020-08-12] MEDS: ACETAMINOPHEN 325 MG TABLET 650 MG PO ×3 (03:24→23:34)
--- NOTE | 2020-08-12 07:14 | WPDGIPROGNO ---
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 Obviously she needs to have a more thorough investigation with 4 quadrant biopsies every 1-2 cm. This will have to await healing of the ulcers. Because she has Endo clips at the side of the ulcer that was bleeding in the distal esophagus, I will want her on a soft diet for the next several days. I explained her to avoid junk food such as chicken, steak pork chops, and thick or tough vegetables. (2) GI bleeding: Code(s): K92.2 - Gastrointestinal hemorrhage, unspecified Status: Acute Assessment and Plan: Her hemoglobin is up to 8.4. From my perspective, she could be discharged. The question is when to start Xarelto. If she really needs it, I would wait at least 1 more day. (3) Atrial fibrillation: Code(s): I48.91 - Unspecified atrial fibrillation Status: Acute Assessment and Plan: If Xarelto needs to be restarted, please wait at least 1 more day. Subjective Date/time seen: 08/12/20 07:14 She is tolerating her full liquid diet. Denies pain on swallowing. Again, she states that she did not have a lot of problems with heartburn. I discussed the results of the EGD with her and explained that she does have Sylvester's esophagus. I had only taken 1 or 2 biopsies. There is no dysplasia on those. She denies abdominal pain nausea or pain on swallowing Review of Systems Review of Systems: All systems reviewed & are unremarkable except as noted in HPI and below Exam Const: General: cooperative and no acute distress Orientation/consciousness: patient oriented x3 HENMT: Ears: hearing grossly impaired Cardio: Rhythm: regular rhythm GI: GI Palp: No abdominal tenderness and Yes Soft to palpation Auscultation: normal bowel sounds Objective Data Vital Signs Vital Signs: Vital Signs - 24 hr 08/11/20 08:00 08/11/20 09:22 08/11/20 10:00 Temperature 36.4 C Pulse Rate 119 H 117 H 99 Respiratory Rate 20 20 Blood Pressure 116/66 119/71 Pulse Oximetry 98 96 08/11/20 12:00 08/11/20 16:00 08/11/20 18:00 Temperature 36.7 C 36.6 C Pulse Rate 111 H 107 H 98 Respiratory Rate 20 18 Blood Pressure 130/78 149/88 H Pulse Oximetry 98 100 08/11/20 20:00 08/11/20 20:37 08/11/20 22:00 Temperature 36.9 C Pulse Rate 121 H 122 H 111 H Respiratory Rate 18 Blood Pressure 129/87 Pulse Oximetry 98 08/11/20 22:14 08/12/20 00:00 08/12/20 04:00 Temperature Pulse Rate 117 H 107 H 117 H Respiratory Rate Blood Pressure Pulse Oximetry 08/12/20 04:19 08/12/20 05:50 Temperature 36.6 C Pulse Rate 95 68 Respiratory Rate 20 Blood Pressure 98/69 L Pulse Oximetry 96 Intake/Output Intake/Output: Intake & Output 08/09/20 08/10/20 08/11/20 08/12/20 23:59 23:59 23:59 23:59 Intake Total 2375 3790 4135 300 Output Total 1050 2200 1525 Balance 1325 1590 2610 300 Meds/Results Medications: Active Medications Generic Name Dose Route Start Last Admin Trade Name Freq PRN Reason Stop Dose Admin Acetaminophen 650 mg 08/09/20 10:32 08/12/20 03:24 Acetaminophen 325 Mg Tablet PO 650 mg Q6H PRN Administration Mild Pain (1-3) or Fever Dextrose 12.5 gm 08/09/20 17:15 Dextrose 50% 25 Gm/50 Ml Syringe IV PUSH PRN PRN Hypoglycemia Protocol Glucagon 1 mg 08/09/20 17:15 Glucagon For Inj 1 Mg Vial IM PRN PRN Hypoglycemia Protocol Glucose 15 gm 08/09/20 17:15 Glucose Oral Gel 15 Gm Of Glucse In 37.5 Gm Tube PO PRN PRN Hypoglycemia Protocol Dextrose 1,000 mls @ 100 mls/hr 08/09/20 17:15 Dextrose 5% 1,000 Ml IVPB PRN PRN Hypoglycemia Protocol Insulin Aspart 4 - 8 units 08/09/20 12:00 08/11/20 16:28 Insulin Aspart (*Bk
[2020-08-12 07:31] LABS: Anion Gap 5 mmol/L (8-16); Blood Urea Nitrogen 19 mg/dL (7-17); Calcium 8.2 mg/dL (8.4-10.2); Carbon Dioxide 20 mmol/L (22-30); Chloride 102 mmol/L (98-107); Estimated CRCL calculation 36 ml/min; Estimated Glomerular Filt Rate 53; Glucose 136 mg/dL (65-105); Potassium 4.6 mmol/L (3.4-5.0); Sodium 127 mmol/L (137-145)
[2020-08-12 08:04] LABS: Glucose Point of Care 156 mg/dl (65-105)
[2020-08-12] MEDS: LIDOCAINE 5% PATCH 1 PATCH TRANSDERM (08:11)
[2020-08-12] MEDS: METOPROLOL TARTRATE 25 MG TABLET PO ×2 (08:12→21:26)
[2020-08-12] MEDS: PANTOPRAZOLE SODIUM IV 40 MG VIAL IV PUSH ×2 (08:13→21:27)
[2020-08-12] MEDS: POTASSIUM CHLORIDE 20 MEQ PACKET (FOR LIQUID) 40 MEQ PO ×2 (08:14→16:41)
[2020-08-12 11:59] LABS: Glucose Point of Care 207 mg/dl (65-105)
[2020-08-12] MEDS: INSULIN ASPART (*BKC) 100 UNITS/ML SUB-Q (11:59)
--- NOTE | 2020-08-12 15:34 | PM.IMPN ---
Progress Note: A&P Assessment and Plan (1) Atrial fibrillation: Code(s): I48.91 - Unspecified atrial fibrillation Status: Chronic Assessment and Plan: sp amiodarone drip now on metoprolol Hold xarelto restart tomorrow Ok dc tomorrow (2) GI bleeding: Code(s): K92.2 - Gastrointestinal hemorrhage, unspecified Status: Acute Assessment and Plan: Hold xarelto restart tomorrow Pt received K [facility] in [place] (3) Anemia: Code(s): D64.9 - Anemia, unspecified Status: Acute Assessment and Plan: Monitor HB frequently, Hb is 8.4 (4) Swelling of lower extremity: Code(s): M79.89 - Other specified soft tissue disorders Status: Acute Assessment and Plan: Continue to watch swelling in legs (5) Diabetes: Code(s): E11.9 - Type 2 diabetes mellitus without complications Status: Inactive Assessment and Plan: AccuCheck SSI, hold oral DM medications Subjective Date/time seen: 08/12/20 15:34 Interval history: Pt admitted with gi bleed, af found to have barrettes since anaemic cont to watch, seen by GI and icu. STable for the medical floor, hold xarelto, sugars better, bp is better no further bleeding can transfer to medical floor , bp is stable Review of Systems Review of Systems: All systems reviewed & are unremarkable except as noted in HPI and below Exam Const: General: other (Elderly women ) HENMT: Head: normocephalic Eyes: General: appearance normal, both eyes and all related structures Pupils: Equal, round and reactive pupils present Neck: Neck: supple Chest: Chest palpation & inspection: normal inspection of the chest Resp: Effort & Inspection: normal respiratory effort Auscultation: clear to auscultation bilaterally Cardio: Jugular venous distension: no JVD Rhythm: regular rhythm Heart sounds: S1 normal heart sound present and S2 normal heart sound present GI: Inspection: normal to inspection Auscultation: normal bowel sounds Skin: General skin exam: normal color and dry skin Neuro: Cranial nerves: Yes CN's II-XII intact bilaterally and Yes Equal, round and reactive pupils present Cognition (Neuro): normal cognition Speech: normal speech Motor exam (neuro): 5/5 motor strength present throughout Extrem: General: normal to inspection Psych: Appearance: grossly normal Mental Status: mental status grossly normal Objective Data Vital Signs Vital Signs: Vital Signs - 24 hr 08/11/20 16:00 08/11/20 18:00 08/11/20 20:00 Temperature 36.7 C 36.6 C Pulse Rate 107 H 98 121 H Respiratory Rate 20 18 Blood Pressure 130/78 149/88 H Pulse Oximetry 98 100 08/11/20 20:37 08/11/20 22:00 08/11/20 22:14 Temperature 36.9 C Pulse Rate 122 H 111 H 117 H Respiratory Rate 18 Blood Pressure 129/87 Pulse Oximetry 98 08/12/20 00:00 08/12/20 04:00 08/12/20 04:19 Temperature Pulse Rate 107 H 117 H 95 Respiratory Rate Blood Pressure Pulse Oximetry 08/12/20 05:50 08/12/20 08:00 08/12/20 08:12 Temperature 36.6 C Pulse Rate 68 124 H 64 Respiratory Rate 20 Blood Pressure 98/69 L Pulse Oximetry 96 08/12/20 12:00 08/12/20 14:00 Temperature 36.1 C L Pulse Rate 103 H 93 Respiratory Rate 14 Blood Pressure 95/58 L Pulse Oximetry 100 Intake/Output Intake/Output: Intake & Output 08/09/20 08/10/20 08/11/20 08/12/20 23:59 23:59 23:59 23:59 Intake Total 2375 3790 4135 780 Output Total 1050 2200 1525 Balance 1325 1590 2610 780 Meds/Results Medications: Active Medications Generic Name Dose Route Start Last Admin Trade Name Freq PRN Reason Stop Dose Admin Acetaminophen 650 mg 08/09/20 10:32 08/12/20 03:24 Acetaminophen 325 Mg Tablet PO 650 mg Q6H PRN Administration Mild Pain (1-3) or Fever Dextrose 12.5 gm 08/09/20 17:15 Dextrose 50% 25 Gm/50 Ml Syringe IV PUSH PRN PRN Hypoglycemia Protocol Glucagon 1 mg 08/09/20 17
[2020-08-12 16:38] LABS: Glucose Point of Care 168 mg/dl (65-105)
[2020-08-12 21:37] LABS: Glucose Point of Care 188 mg/dl (65-105)
[2020-08-13] VITALS (10 sets, daily range): BP systolic 100–115; BP diastolic 46–58; PULSE 50–113; RESP 16–20; TEMP 36.4–36.6; O2SAT 95–100
[2020-08-13] MEDS: ACETAMINOPHEN 325 MG TABLET 650 MG PO ×3 (04:36→21:31)
[2020-08-13] MEDS: LIDOCAINE 5% PATCH 1 PATCH TRANSDERM (05:45)
[2020-08-13 06:39] LABS: Hematocrit 26.8 % (37.0-47.0); Hemoglobin 8.7 g/dL (12.0-15.0); Mean Corpuscular HGB Conc 32.5 g/dl (32-36); Mean Corpuscular Volume 92.4 fl (80-100); Mean Platelet Volume 10.8 fl (7.4-10.4); Platelet Count Result 218 k/mm3 (150-375); White Blood Count 8.8 K/mm3 (4.5-10.0)
[2020-08-13 06:58] LABS: Anion Gap 8 mmol/L (8-16); Blood Urea Nitrogen 16 mg/dL (7-17); Calcium 8.5 mg/dL (8.4-10.2); Carbon Dioxide 17 mmol/L (22-30); Chloride 101 mmol/L (98-107); Estimated CRCL calculation 36 ml/min; Estimated Glomerular Filt Rate 53; Glucose 160 mg/dL (65-105); Sodium 126 mmol/L (137-145)
[2020-08-13 08:04] LABS: Glucose Point of Care 164 mg/dl (65-105)
[2020-08-13] MEDS: POTASSIUM CHLORIDE 20 MEQ PACKET (FOR LIQUID) 40 MEQ PO ×2 (08:06→16:12)
[2020-08-13] MEDS: METOPROLOL TARTRATE 25 MG TABLET PO (08:07)
[2020-08-13] MEDS: PANTOPRAZOLE SODIUM IV 40 MG VIAL IV PUSH (08:07)
--- NOTE | 2020-08-13 08:59 | WPDGIPROGNO ---
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 Obviously she needs to have a more thorough investigation with 4 quadrant biopsies every 1-2 cm. This will have to await healing of the ulcers. EGD will be repeated in 5-6 weeks Because she has Endo clips at the site of the ulcer that was bleeding in the distal esophagus, I will want her on a soft diet for the next several days. I explained her to avoid junk food such as chicken, steak pork chops, and thick or tough vegetables. (2) GI bleeding: Code(s): K92.2 - Gastrointestinal hemorrhage, unspecified Status: Acute Assessment and Plan: Her hemoglobin is up to 8.4. From my perspective, she could be discharged. The question is when to start Xarelto. If she really needs it, I would wait at least 1 more day. (3) Atrial fibrillation: Code(s): I48.91 - Unspecified atrial fibrillation Status: Chronic Assessment and Plan: If Xarelto needs to be restarted, please wait at least 1 more day. Subjective Date/time seen: 08/13/20 08:59 She is feeling good. She is eating well. Hemoglobin is stable. She denies abdominal pain. We again discussed her Sylvester's esophagus and the fact that it is due to reflux. She states she never has problems with heartburn and therefore she falls in to the 10 to 15% of patients who do not feel acid in the esophagus and therefore are at a high probability for complications because remedy is not sought for will would otherwise be significant symptoms. Review of Systems Review of Systems: All systems reviewed & are unremarkable except as noted in HPI and below Exam Const: General: cooperative, comfortable, no acute distress and awake Orientation/consciousness: patient oriented x3 HENMT: Ears: hearing grossly impaired Resp: Auscultation: clear to auscultation bilaterally Cardio: Rhythm: regular rhythm and abnormal rhythm ( irregular) GI: Auscultation: normal bowel sounds Skin: General skin exam: dry skin, no purpura and pallor Neuro: General: patient oriented x3 Objective Data Vital Signs Vital Signs: Vital Signs - 24 hr 08/12/20 12:00 08/12/20 14:00 08/12/20 16:00 Temperature 36.1 C L Pulse Rate 103 H 93 101 H Respiratory Rate 14 Blood Pressure 95/58 L Pulse Oximetry 100 08/12/20 20:00 08/12/20 21:26 08/12/20 21:39 Temperature 36.6 C Pulse Rate 114 H 110 H 40 L Respiratory Rate 20 Blood Pressure 110/58 L Pulse Oximetry 100 08/12/20 22:05 08/13/20 00:00 08/13/20 04:00 Temperature Pulse Rate 110 H 112 H Respiratory Rate Blood Pressure Pulse Oximetry 99 08/13/20 05:57 08/13/20 08:07 Temperature 36.6 C Pulse Rate 50 L 108 H Respiratory Rate 20 Blood Pressure 115/52 L Pulse Oximetry 95 Intake/Output Intake/Output: Intake & Output 08/10/20 08/11/20 08/12/20 08/13/20 23:59 23:59 23:59 23:59 Intake Total 3790 4135 1320 250 Output Total 2200 1525 1000 500 Balance 1590 2610 320 -250 Meds/Results Medications: Active Medications Generic Name Dose Route Start Last Admin Trade Name Freq PRN Reason Stop Dose Admin Acetaminophen 650 mg 08/09/20 10:32 08/13/20 04:36 Acetaminophen 325 Mg Tablet PO 650 mg Q6H PRN Administration Mild Pain (1-3) or Fever Dextrose 12.5 gm 08/09/20 17:15 Dextrose 50% 25 Gm/50 Ml Syringe IV PUSH PRN PRN Hypoglycemia Protocol Glucagon 1 mg 08/09/20 17:15 Glucagon For Inj 1 Mg Vial IM PRN PRN Hypoglycemia Protocol Glucose 15 gm 08/09/20 17:15 Glucose Oral Gel 15 Gm Of Glucse In 37.5 Gm Tube PO PRN PRN Hypoglycemia Protocol Dextrose 1,000 mls @ 100 mls/hr 08/09/20 17:15 Dextrose 5% 1,000 Ml IVPB PRN PRN Hypoglycemia Pro
[2020-08-13 12:02] LABS: Glucose Point of Care 221 mg/dl (65-105)
[2020-08-13] MEDS: INSULIN ASPART (*BKC) 100 UNITS/ML SUB-Q (12:03)
--- NOTE | 2020-08-13 13:29 | PM.CNCAR ---
Assessment and Plan Additional Plan This is an 85-year-old lady with chronic atrial fibrillation being managed with rate control and anticoagulation. She presents to the hospital with tachycardia and symptomatic anemia with multiple gastric ulcers as well as evidence of some Sylvester's esophagus. One of these ulcers was cauterized in the GI lab. She is stable right now receiving metoprolol rather than diltiazem for rate control and I am consulted to see her today because when she ambulates her heart rate is faster than they are used to seeing. I told the patient and her daughter there are several obvious reasons for this. Generally speaking metoprolol is not as effective at depressing AV node contractility than diltiazem. In addition to this she is still significantly anemic and it is normal physiological response to activity for her to become tachycardic. I am going to recommend shifting her back to the diltiazem that was her baseline rate control medication. I would also recommend discontinuing not simply holding her Xarelto. This lady's ulcer disease places her at very high risk for serious recurrent hemorrhagic events and I would not recommend resuming it. 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 My opinion would be to simply stop anticoagulation. Matty Lucas MD [facility] History of Present Illness History of Present Illness Consult date/time: 08/13/20 13:29 Consult reason: atrial fibrillation Reason For Visit: gi bleed Narrative: This is an 85-year-old woman I am seeing request of the hospitalist to assist with management of chronic atrial fibrillation. She is unknown to me and follows with her atrial fibrillation with Dr. Aguiar at [facility]. She came into [facility] several days ago on the because of tachycardia and significant anemia with a hemoglobin I believe of 6.6. She normally takes diltiazem to provide heart rate control and Xarelto for systemic anticoagulation. There was evidence of upper GI bleeding and she was admitted to the ICU. She was transfused red cell volume and looks like for a short time given some amiodarone for heart rate control. She underwent GI endoscopy and was found to have multiple gastric ulcers with evidence of stigmata of recent bleeding at least 1 of the ulcers was cauterized also evidence of Sylvester's esophagus. She has recovered nicely from all this and is now upon the floor and was planning to be discharged but apparently the staff and the hospitalist were concerned that when she is ambulating her heart rate becomes rather accelerated although she is totally asymptomatic and unaware of this. This appears to be something this being noticed on telemetry but is not resulting in any complaints on part of the patient. She is currently receiving metoprolol at a dosage of 25 mg twice daily rather than the the diltiazem with which she was admitted. An echocardiogram was done during this hospitalization which demonstrated no significant valvular heart disease it looks occurred ejection fraction is in the range of 45-50%. Review of Systems Constitutional: Constitutional: Reports fatigue Eyes: Eyes: Reports no additional eye complaints ENT: Reports system reviewed and no additional complaints, except as documented Cardiovascular: Cardiovascular: Reports as per HPI and Reports no additional cardiovascular complaints Respiratory: Respiratory: Reports no additional respiratory complaints Gastrointestinal: Gastrointestinal: Reports no additional gastrointestinal complaints Musculoskeletal: Musculoskeletal: Reports no additional musculoskeletal complaints Integumentary/Breasts: Skin/Breast: Reports system reviewed and no additional complaints, except as docu Neurologic: Reports system reviewed and no additional complaints, except as documented Psychiatric: Psychia
[2020-08-13] MEDS: dilTIAZem HCL CD 180 MG CAP.ER.24H PO (14:45)
--- NOTE | 2020-08-13 14:53 | PM.IMPN ---
Progress Note: A&P Assessment and Plan (1) Atrial fibrillation: Code(s): I48.91 - Unspecified atrial fibrillation Status: Chronic Assessment and Plan: sp amiodarone drip now on metoprolol transition to diltiazem stop xarelto as per cardiology note monitor today and dc tomorrow (2) GI bleeding: Code(s): K92.2 - Gastrointestinal hemorrhage, unspecified Status: Acute Assessment and Plan: STOP XARELTO Pt received K [facility] in [place] (3) Anemia: Code(s): D64.9 - Anemia, unspecified Status: Acute Assessment and Plan: Monitor HB frequently, Hb is 8.4 (4) Swelling of lower extremity: Code(s): M79.89 - Other specified soft tissue disorders Status: Acute Assessment and Plan: Continue to watch swelling in legs (5) Diabetes: Code(s): E11.9 - Type 2 diabetes mellitus without complications Status: Inactive Assessment and Plan: AccuCheck SSI, hold oral DM medications Subjective Date/time seen: 08/13/20 14:53 Interval history: Pt admitted with gi bleed, af found to have barrettes since anaemic cont to watch, seen by GI and icu. Stable for the medical floor, stop xarelto, sugars better. Review of Systems Review of Systems: All systems reviewed & are unremarkable except as noted in HPI and below Exam Const: General: other (Elderly women ) HENMT: Head: normocephalic Eyes: General: appearance normal, both eyes and all related structures Pupils: Equal, round and reactive pupils present Neck: Neck: supple Chest: Chest palpation & inspection: normal inspection of the chest Resp: Effort & Inspection: normal respiratory effort Auscultation: clear to auscultation bilaterally Cardio: Jugular venous distension: no JVD Rhythm: regular rhythm Heart sounds: S1 normal heart sound present and S2 normal heart sound present GI: Inspection: normal to inspection Auscultation: normal bowel sounds Skin: General skin exam: normal color and dry skin Neuro: Cranial nerves: Yes CN's II-XII intact bilaterally and Yes Equal, round and reactive pupils present Cognition (Neuro): normal cognition Speech: normal speech Motor exam (neuro): 5/5 motor strength present throughout Extrem: General: normal to inspection Psych: Appearance: grossly normal Mental Status: mental status grossly normal Objective Data Vital Signs Vital Signs: Vital Signs - 24 hr 08/12/20 16:00 08/12/20 20:00 08/12/20 21:26 Temperature Pulse Rate 101 H 114 H 110 H Respiratory Rate Blood Pressure Pulse Oximetry 08/12/20 21:39 08/12/20 22:05 08/13/20 00:00 Temperature 36.6 C Pulse Rate 40 L 110 H Respiratory Rate 20 Blood Pressure 110/58 L Pulse Oximetry 100 99 08/13/20 04:00 08/13/20 05:57 08/13/20 08:00 Temperature 36.6 C Pulse Rate 112 H 50 L 83 Respiratory Rate 20 Blood Pressure 115/52 L Pulse Oximetry 95 08/13/20 08:07 08/13/20 12:00 Temperature Pulse Rate 108 H 113 H Respiratory Rate Blood Pressure Pulse Oximetry Intake/Output Intake/Output: Intake & Output 08/10/20 08/11/20 08/12/20 08/13/20 23:59 23:59 23:59 23:59 Intake Total 3790 4135 1320 490 Output Total 2200 1525 1000 500 Balance 1590 2610 320 -10 Meds/Results Medications: Active Medications Generic Name Dose Route Start Last Admin Trade Name Freq PRN Reason Stop Dose Admin Acetaminophen 650 mg 08/09/20 10:32 08/13/20 10:54 Acetaminophen 325 Mg Tablet PO 650 mg Q6H PRN Administration Mild Pain (1-3) or Fever Dextrose 12.5 gm 08/09/20 17:15 Dextrose 50% 25 Gm/50 Ml Syringe IV PUSH PRN PRN Hypoglycemia Protocol Diltiazem HCl 180 mg 08/13/20 13:45 08/13/20 14:45 Diltiazem Hcl Cd 180 Mg Cap.Er.24h PO 180 mg QAM MAGDY Administration Glucagon 1 mg 08/09/20 17:15 Glucagon For Inj 1 Mg Vial IM PRN PRN Hypoglycemia Protocol Glucose 15 gm 08/09/20 17:
[2020-08-13 16:11] LABS: Glucose Point of Care 150 mg/dl (65-105)
[2020-08-14 01:06] LABS: Glucose Point of Care 164 mg/dl (65-105)
[2020-08-14] MEDS: ACETAMINOPHEN 325 MG TABLET 650 MG PO ×3 (03:02→16:18)
[2020-08-14 06:00] VITALS: BP 110/61; PULSE 83; RESP 18; TEMP 36.3; O2SAT 96
[2020-08-14 08:03] LABS: Glucose Point of Care 152 mg/dl (65-105)
[2020-08-14] MEDS: LIDOCAINE 5% PATCH 1 PATCH TRANSDERM (08:38)
[2020-08-14] MEDS: POTASSIUM CHLORIDE 20 MEQ PACKET (FOR LIQUID) 40 MEQ PO (08:39)
[2020-08-14] MEDS: dilTIAZem HCL CD 180 MG CAP.ER.24H PO (08:39)
--- NOTE | 2020-08-14 10:39 | PM.PNCARD ---
Progress Note: A&P Assessment and Plan (1) Atrial fibrillation: Code(s): I48.91 - Unspecified atrial fibrillation Status: Chronic Assessment and Plan: Heart rate seems well controlled with diltiazem. Could increase as an outpatient need be. She is off of anticoagulation for now. In my opinion, would restart anticoagulation as outpatient once her ulcers heal. If it is decided not to per resume anticoagulation, a Watchman device would be a good alternative. (2) GI bleeding: Code(s): K92.2 - Gastrointestinal hemorrhage, unspecified Status: Acute Assessment and Plan: Secondary to ulcers. Off anticoagulation for him (3) Swelling of lower extremity: Code(s): M79.89 - Other specified soft tissue disorders Status: Acute Assessment and Plan: Furosemide 20 mg IV x1 (4) Anemia: Code(s): D64.9 - Anemia, unspecified Status: Acute Assessment and Plan: Secondary to GI bleeding Subjective Date/time seen: 08/14/20 10:39 Interval history: 85-year-old with anemia and atrial fibrillation Date of service 08/14/2020: She feels okay. She has no chest pain, short of breath. She does have swelling but she thinks it is better Review of Systems Constitutional: Constitutional: Reports fatigue Eyes: Eyes: Reports no additional eye complaints ENT: Reports system reviewed and no additional complaints, except as documented Cardiovascular: Cardiovascular: Reports as per HPI and Reports no additional cardiovascular complaints Respiratory: Respiratory: Reports no additional respiratory complaints Gastrointestinal: Gastrointestinal: Reports no additional gastrointestinal complaints Musculoskeletal: Musculoskeletal: Reports no additional musculoskeletal complaints Integumentary/Breasts: Skin/Breast: Reports system reviewed and no additional complaints, except as docu Neurologic: Reports system reviewed and no additional complaints, except as documented Psychiatric: Psychiatric: Reports no additional psychiatric complaints Endocrine: Endocrine: Reports no additional endocrine complaints and Reports fatigue Hematologic/Lymphatic: Hematologic/Lymphatic: Reports no additional hematologic/lymphatic complaints Allergic/Immunologic: Allergic/Immunologic: Reports no additional allergic/immunologic complaints Exam Const: General: comfortable and no acute distress Other: Pleasant elderly lady seated in the chair visiting with her daughter no distress of any sort HENMT: Mouth: Yes moist mucous membranes Eyes: Sclera: sclerae normal Pupils: Equal, round and reactive pupils present Neck: Neck: supple and no JVD Thyroid: thyroid normal Resp: Effort & Inspection: normal respiratory effort Auscultation: clear to auscultation bilaterally Cardio: Rhythm: abnormal rhythm irregularly irregular GI: Auscultation: normal bowel sounds Skin: General skin exam: normal color Neuro: Cranial nerves: Yes Equal, round and reactive pupils present Cognition (Neuro): normal cognition Extrem: Other: Mild edema with good distal pulses Psych: Appearance: grossly normal Objective Data Vital Signs Vital Signs: Vital Signs - 24 hr 08/13/20 12:00 08/13/20 14:00 08/13/20 16:00 Temperature 36.4 C L Pulse Rate 113 H 53 L 98 Respiratory Rate 16 Blood Pressure 107/46 L Pulse Oximetry 100 08/13/20 20:30 08/13/20 22:00 08/14/20 06:00 Temperature 36.6 C 36.3 C L Pulse Rate 100 100 83 Respiratory Rate 16 16 18 Blood Pressure 100/58 L 110/61 Pulse Oximetry 96 96 96 Intake/Output Intake/Output: Intake & Output 08/11/20 08/12/20 08/13/20 08/14/20 23:59 23:59 23:59 23:59 Intake Total 4135 1320 1220 680 Output Total 1525 1000 1200 850 Balance 2610 320 20 -170 Meds/Results Medications: Active Medications Generic Name Dose Route Start Last Admin Trade Name Freq PRN Reason Stop Dose Admin Acetaminophen 650 mg 08/09/20 10:32 08/14/20 08:40
--- NOTE | 2020-08-14 11:40 | PCNFU ---
Nutrition Follow-Up Complete: Inadequate oral intake related to GI bleeding as evidenced by NPO diet, reported weight loss. Goal: Patient to meet estimated nutritional needs. Goal: Progressing towards goal. We will continue current goal. Pt current nutrition is Soft and Bite Sized, Level 6. Last recorded weight is 76.5 kg, up from 69.5 kg on admit. Bowel Motility:+BM reported 08/13. Labs Reviewed:GFR 53,Na 126,Glu 160 Meds Noted:Cardizem, KCL powder Additional Notes: Nutrition follow up. Patient seen today for nutrition follow up. Oral Intake has been 75-100% of meals. No skin issues. Plans for SNF at discharge. Monitoring: Follow up every 5 days.
[2020-08-14 12:40] LABS: Glucose Point of Care 228 mg/dl (65-105)
[2020-08-14] MEDS: INSULIN ASPART (*BKC) 100 UNITS/ML SUB-Q (13:15)
[2020-08-14] MEDS: FUROSEMIDE INJ 40 MG/4 ML VIAL 20 MG IV PUSH (13:15)
--- NOTE | 2020-08-14 13:35 | PM.DS ---
DS: Admitting Diagnosis Admitting Diagnosis Admitting Diagnosis: GI bleed DS: Discharge Diagnosis Discharge Diagnosis (1) Atrial fibrillation: Code(s): I48.91 - Unspecified atrial fibrillation Status: Chronic Assessment and Plan: Sp amiodarone drip in icu now on metoprolol transition to diltiazem Stop Xarelto as per cardiology note. If it is decided not to per resume anticoagulation, a Watchman device would be a good alternative. (2) GI bleeding: Code(s): K92.2 - Gastrointestinal hemorrhage, unspecified Status: Resolved Assessment and Plan: STOPPED XARELTO as per cardiology recommendation Pt received K [facility] in [place] for GI bleeding and was monited in icu for low bps initally pt had EGD under GI showing ulcers and Sylvester's with no dysplasia. Obviously she needs to have a more thorough investigation with 4 quadrant biopsies every 1-2 cm. Gi will show with EGD will be repeated in 5-6 weeks (3) Anemia: Code(s): D64.9 - Anemia, unspecified Status: Acute Assessment and Plan: Monitor HB frequently, Hb is 8.7, can take iron (4) Swelling of lower extremity: Code(s): M79.89 - Other specified soft tissue disorders Status: Resolved Assessment and Plan: Swelling resolved on iv lasix Venous doppler is negative Echo report shows- Left ventricular chamber dimension is normal. Left ventricular systolic function is mildly reduced, estimated at 45-50%. There is no increased left ventricular wall thickness. Left ventricular septal wall motion is normal. The left ventricular diastolic function is abnormal Pt has history of systolic congestive heart failure sees cardiology (5) Diabetes: Code(s): E11.9 - Type 2 diabetes mellitus without complications Status: Inactive Assessment and Plan: AccuCheck SSI, hold oral DM medications DS: Summary Hospital Course Hospital Course: Pt admitted with gi bleed and af found to have barrettes and ulcer on EGD pt to follow with GI in 4-6 weeks time Xarelto was stopped in hospital. Time Spent with Patient Time attestation: Total time spent providing and/or coordinating discharge services:40 minutes on day of dischrage Exam Const: General: other (Elderly women ) HENMT: Head: normocephalic Eyes: General: appearance normal, both eyes and all related structures Pupils: Equal, round and reactive pupils present Neck: Neck: supple Chest: Chest palpation & inspection: normal inspection of the chest Resp: Effort & Inspection: normal respiratory effort Auscultation: clear to auscultation bilaterally Cardio: Jugular venous distension: no JVD Rhythm: regular rhythm Heart sounds: S1 normal heart sound present and S2 normal heart sound present GI: Inspection: normal to inspection Auscultation: normal bowel sounds Skin: General skin exam: normal color and dry skin Neuro: Cranial nerves: Yes CN's II-XII intact bilaterally and Yes Equal, round and reactive pupils present Cognition (Neuro): normal cognition Speech: normal speech Motor exam (neuro): 5/5 motor strength present throughout Extrem: General: normal to inspection Psych: Appearance: grossly normal Mental Status: mental status grossly normal DS: Data Data Completed and Pending Completed studies during hospitalization: Pending at discharge 08/10/20 12:42 Surgical [PTH] Routine Labs on day of discharge: Labs from last 24 hours 08/14/20 08/14/20 08/14/20 12:06 07:37 00:21 POC Capillary Glucose 228 H 152 H 164 H 08/13/20 16:08 POC Capillary Glucose 150 H Discharge Plan Discharge Attending physician on discharge: Kaela Cantu Consulting providers: Kevin Welsh ; Berna Clark Discharging Clinician: Kaela Cantu Anticipated Discharge Date/Time: 08/14/20 13:31 Patient Disposition: Home, Self-Care Activity: as tolerated Diet: heart healthy Discharge Inst
[2020-08-14 14:00] VITALS: BP 107/51; PULSE 78; RESP 18; TEMP 36.6; O2SAT 100
== END 2020-08-14 16:55 | DRG 381 ==
LOC: ANHICU 08-11 12:45 → ANH3MEDSUR 08-11 17:39
PROVIDERS: Internal Medicine; Internal Medicine Gastroenterology; Admitting Provider Family Medicine; Visit Provider Family Medicine
PROC: 0DJ08ZZ Inspection of Upper Intestinal Tract, Via Natural or Artificial Opening Endoscopic (ICD-10-PCS; CPT 43235; principal; 2020-08-10 11:00)
DX: K22.11 Ulcer of esophagus with bleeding (principal); I48.20 Chronic atrial fibrillation, unspecified; D62 Acute posthemorrhagic anemia; N17.9 Acute kidney failure, unspecified; K57.30 Diverticulosis of large intestine without perforation or abscess without bleeding; K64.8 Other hemorrhoids; D63.1 Anemia in chronic kidney disease; E20.9 Hypoparathyroidism, unspecified; E11.22 Type 2 diabetes mellitus with diabetic chronic kidney disease; M79.89 Other specified soft tissue disorders; I12.9 Hypertensive chronic kidney disease with stage 1 through stage 4 chronic kidney disease, or unspecified chronic kidney disease; N18.9 Chronic kidney disease, unspecified; Z66 Do not resuscitate; Z79.01 Long term (current) use of anticoagulants
CPT/HCPCS: 36415; 36430; 80048; 80053; 81001; 82010; 82948; 83605; 83735; 84100; 84484; 85014; 85018; 85025; 85027; 85610; 85730; 86850; 86900; 86901; 86920; 87086; 88305; 93306; 93970; 97110; 97116; 97161; 97165; 97530; 97535; A9270; C9113; J0171; J0282; J1815; J1940; J2704; J7030; J7040; J7050; J7060; J7120; P9016